=== PATIENT | male | born 2000 | race Hispanic/Latino ===

== ENCOUNTER 2023-10-05 14:01 | Emergency (ER) | payer OTHER, SELFPAY ==
[2023-10-05 14:08] VITALS: BP 155/90; PULSE 108; RESP 18; TEMP 36.7; O2SAT 100
--- NOTE | 2023-10-05 14:25 | ED.HA ---
HPI - Headache General Chief Complaint: Headache Stated Complaint: headache, dizziness x3 days Time Seen by Provider: 10/05/23 14:18 Source: patient Mode of arrival: ambulatory Limitations: no limitations History of Present Illness HPI Narrative: This is a 22-year-old male who presents to the ED with chief complaint of headache x4 days. Reports bilateral Headache to temporal/occipital areas. States it feels like it radiates at times. Endorses tingling throughout the scalp, bilateral neck, bilateral face and tongue. Endorses mild photophobia. Also states he has felt dizzy. His roommate is here and feels that the patient has been very stressed. 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 Denies neck pain, neck stiffness, fevers, chills, nausea, vomiting, focal numbness or weakness. Denies chest pain, shortness of breath, cough, vision change. denies any injuries. Related Data Allergies Allergy/AdvReac Type Severity Reaction Status Date / Time No Known Allergies Allergy Verified 10/05/23 14:04 Review of Systems Review of Systems: All systems as dictated in HPI Exam Narrative: GENERAL: Well-appearing, well-nourished, and in no acute distress. HEAD: Normocephalic, atraumatic. EYES: PERRLA and EOMI. mild photophobia present ENT: Nares clear, no rhinorrhea or epistaxis. Mucous membranes moist. Oropharynx without tonsillar hypertrophy exudate or other lesions. NECK: Supple. No adenopathy or masses. No signs of meningismus CHEST: No respiratory distress. Clear to auscultation. No wheezes rales or rhonchi HEART: Regular rate and rhythm. No murmur heard. Normal peripheral pulses. ABDOMEN: Soft, nontender, nondistended, normal active bowel sounds. MSK: Normal range of motion. No edema. SKIN: Warm, dry, no rash. NEURO: Alert and oriented x4. No focal deficits. PSYCH: Normal mood and affect. Course Vital Signs Vital signs: Vital Signs Temperature 98.0 F 10/05/23 14:08 Pulse Rate 108 H 10/05/23 14:08 Respiratory Rate 18 10/05/23 14:08 Blood Pressure 155/90 H 10/05/23 14:08 Pulse Oximetry 100 10/05/23 14:08 Oxygen Delivery Room Air 10/05/23 14:08 Temperature 98.0 F 10/05/23 16:05 Pulse Rate 78 10/05/23 16:05 Respiratory Rate 12 10/05/23 16:05 Blood Pressure 128/65 10/05/23 16:05 Pulse Oximetry 100 10/05/23 16:05 Oxygen Delivery Room Air 10/05/23 14:08 MDM - Headache MDM Narrative Medical decision making narrative: This is a 22-year-old male who presents to the ED with chief complaint of bilateral headache bilateral tingling for the past couple of days. Vitals are normal. exam is unremarkable. No focal neurologic deficit. No signs of meningismus. lab work is grossly unremarkable. Patient Was given headache cocktail here and has significant improvement. Pt will be discharged in stable condition. Return precautions given and supportive measures discussed. Pt is understanding and agreeable with plan for discharge and follow-up with PCP. Differential Diagnosis Differential diagnosis: Likely migraine, tension headache, headache, meningitis and sinusitis Lab Data 10/05/23 15:06 10/05/23 15:06 Labs: Lab Results 10/05/23 Range/Units 15:06 WBC 6.1 (4.5-10.0) K/mm3 RBC 5.04 (4.6-6.20) M/mm3 Hgb 14.4 (14.0-18.0) g/dL Hct 43.7 (42.0-52.0) % MCV 86.7 (80-100) fl MCH 28.6 (26-34) pg MCHC 33.0 (32-36) g/dl RDW 13.1 (11.5-14.5) % Plt Count 251 (150-375) k/mm3 MPV 10.1 (7.4-10.4) fl Immature Gran % (Auto) 0.3 (0-0.5) % Neut % (Auto) 62.5 (45.5-73.1) % Lymph % (Auto) 30.6 (18.3-44.2) % [place] % (Auto) 5.1 (2.6-8.5) % Eos % (Auto) 1.2 (0-4.4) % Baso % (Auto) 0.3 (0.2-1.2) % Lymph # (Auto) 1.86 (0.9-3.2) K/mm3 [place] # (Auto) 0.3 (0.1-0.6) K/mm3 Eos # (Auto) 0.1 (0-0.3) K/mm3 Baso # (Auto) 0.0 (0.0-0.1) K/mm3 Abs Immat Gran (auto) 0.02 (0.00-0.031) K/mm3 Absolute Neut
--- NOTE | 2023-10-05 14:33 | ECG_ITS ---
Test Date: 2023-10-05 14:45:27 Measurements Intervals [place] Rate: 98 P: 67 AR: 172 QRS: 70 QRSD: 101 T: 19 QT: 331 QTc: 424 Interpretive Statements SINUS RHYTHM NONSPECIFIC T-WAVE ABNORMALITY No previous ECG available for comparison Electronically Signed On 10-06-2023 12:34:26 CDT by Yamile Payne M.D.
[2023-10-05] MEDS: diphenhydrAMINE HCl INJ 50 MG/ML VIAL 25 MG IV PUSH (14:58)
[2023-10-05] MEDS: PROCHLORPERAZINE EDISYLATE 10 MG/2 ML VIAL IV PUSH (14:58)
[2023-10-05] MEDS: SODIUM CHLORIDE 0.9% IV 1,000 ML 999 ML IV CONT (14:59)
[2023-10-05] MEDS: KETOROLAC 15 MG/ML VIAL (*BKC) IV PUSH (14:59)
[2023-10-05 15:18] LABS: Basophils Percent Auto 0.3 % (0.2-1.2); Eosinophils Absolute Auto 0.1 K/mm3 (0-0.3); Eosinophils Percent Auto 1.2 % (0-4.4); Hematocrit 43.7 % (42.0-52.0); Hemoglobin 14.4 g/dL (14.0-18.0); Immature Granulocyte Absolute 0.02 K/mm3 (0.00-0.031); Immature Granulocyte Percent A 0.3 % (0-0.5); Lymphocytes Absolute Auto 1.86 K/mm3 (0.9-3.2); Lymphocytes Percent Auto 30.6 % (18.3-44.2); Mean Corpuscular Hemoglobin 28.6 pg (26-34); Mean Corpuscular Volume 86.7 fl (80-100); Mean Platelet Volume 10.1 fl (7.4-10.4); Monocytes Absolute Auto 0.3 K/mm3 (0.1-0.6); Monocytes Percent Auto 5.1 % (2.6-8.5); Neutrophils Absolute Auto 3.8 K/mm3 (1.3-6.7); Neutrophils Percent Auto 62.5 % (45.5-73.1); Platelet Count Result 251 k/mm3 (150-375); Red Blood Count 5.04 M/mm3 (4.6-6.20); Red Cell Distribution Width 13.1 % (11.5-14.5); White Blood Count 6.1 K/mm3 (4.5-10.0)
[2023-10-05 15:34] LABS: Alanine Aminotransferase 28 U/L (6-50); Albumin Level 4.6 g/dL (3.5-5.1); Alkaline Phosphatase 66 U/L (38-126); Anion Gap 7 mmol/L (4-12); Aspartate Amino Transferase 32 U/L (17-59); Bilirubin,Total 0.7 mg/dL (0.2-1.3); Blood Urea Nitrogen 11 mg/dL (9-20); CRP < 0.5 mg/dL (<1.0); Calcium 9.1 mg/dL (8.4-10.2); Carbon Dioxide 29 mmol/L (22-30); Chloride 104 mmol/L (98-107); Estimated CRCL calculation 138 ml/min; Estimated Glomerular Filt Rate > 60; Glucose 125 mg/dL (65-110); Sodium 140 mmol/L (137-145)
[2023-10-05 16:05] VITALS: BP 128/65; PULSE 78; RESP 12; TEMP 36.7; O2SAT 100
== END 2023-10-05 16:07 | disposition home or self-care (01) ==
PROVIDERS: Emergency Provider Physician Assistant
DX: G43.909 Migraine, unspecified, not intractable, without status migrainosus (principal); R94.31 Abnormal electrocardiogram [ECG] [EKG]
CPT/HCPCS: 36415; 80053; 85025; 86140; 93005; 96361; 96374; 96375; 99284; J0780; J1200; J1885; J7030